=== PATIENT | male | born 1980 | race Caucasian/White ===

== ENCOUNTER 2021-02-11 10:54 | Emergency (ER) | payer OTHER ==
[~2021-02-11] VITALS: Ht 170.2 cm; Wt 97.0 kg
[2021-02-11 11:02] VITALS: BP 136/77
--- NOTE | 2021-02-11 11:20 | PHYS DOC ---
Past History Additional Past Medical Histor: goit, chronic back pain Past Surgical History: Other Additional Past Surgical Histo: left shoulder Alcohol Use: Occasionally General Adult EDM: Chief Complaint: FOOT INJURY PAIN HPI: HPI: 40-year-old male presents with erythematous, swollen, painful left foot at the base of the great toe. The patient states that the skin is extremely sensitive to even light touch. This came up over the last 24 hours. The patient has had an episode similar to this but never had any evaluation or testing. No previous history of gout. He has otherwise been feeling fine. Denies fever or chills. Review of Systems: Review of Systems: Constitutional: Denies fever or chills Eyes: Denies change in visual acuity HENT: Denies nasal congestion or sore throat Respiratory: Denies cough or shortness of breath Cardiovascular: Denies chest pain or edema GI: Denies abdominal pain, nausea, vomiting, bloody stools or diarrhea : Denies dysuria Musculoskeletal: Denies back pain or joint pain Integument: Left face of the great toe erythema and pain Neurologic: Denies headache, focal weakness or sensory changes Endocrine: Denies polyuria or polydipsia Lymphatic: Denies swollen glands Psychiatric: Denies depression or anxiety Allergies: Allergies: Allergies Coded Allergies Type Severity Reaction Last Updated Verified No Known Drug Allergies 02/11/21 No Physical Exam: PE: Constitutional: Well developed, well nourished, no acute distress, non-toxic appearance. [] HENT: Normocephalic, atraumatic, bilateral external ears normal, oropharynx moist, no oral exudates, nose normal. [] Eyes: PERRLA, EOMI, conjunctiva normal, no discharge. [] Neck: Normal range of motion, no tenderness, supple, no stridor. [] Cardiovascular:Heart rate regular rhythm, no murmur [] Lungs & Thorax: Bilateral breath sounds clear to auscultation [] Abdomen: Bowel sounds normal, soft, no tenderness, no masses, no pulsatile masses. [] Skin: Warm, erythematous, very sensitive skin at the base of the left great t oe.[] Back: No tenderness, no CVA tenderness. [] Extremities: No tenderness, no cyanosis, no clubbing, ROM intact, no edema. [] Neurologic: Alert and oriented X 3, normal motor function, normal sensory function, no focal deficits noted. [] Psychologic: Affect normal, judgement normal, mood normal. [] Current Patient Data: Vital Signs: Vital Signs Date Time Temp Pulse Resp B/P (MAP) Pulse Ox O2 Delivery O2 Flow Rate FiO2 02/11/21 11:02 90 18 136/77 (96) 100 Room Air EKG: EKG: [] Radiology/Procedures: Radiology/Procedures: [] Heart Score: C/O Chest Pain: N/A Risk Factors: Risk Factors: DM, Current or recent (<one month) smoker, HTN, HLP, family history of CAD, obesity. Risk Scores: Score 0 - 3: 2.5% MACE over next 6 weeks - Discharge Home Score 4 - 6: 20.3% MACE over next 6 weeks - Admit for Clinical Observation Score 7 - 10: 72.7% MACE over next 6 weeks - Early Invasive Strategies Course & Med Decision Making: Course & Med Decision Making Pertinent Labs and Imaging studies reviewed. (See chart for details) The patient's labs are remarkable for an elevated uric acid and liver enzymes. This appears to be gout. I will treat him with 500 naproxen in the ER and discharge her with a prescription for indomethacin for home. He is stable for discharge at this time. [] Dragon Disclaimer: Dragon Disclaimer: This electronic medical record was generated, in whole or in part, using a voice recognition dictation system. Departure Departure: Impression: Primary Impression: Gout Disposition: HOME / SELF CARE / HOMELESS Condition: STABLE Referrals: LUIZ DEWITT DO, [facility] (PCP) Patient Instructions: Gout, [id number] Scripts Indomethacin (INDOMETHACIN) 50 Mg Capsule 1 CAP PO TID for gout for 10 Days, #30 CAP 0 Refills with food Prov: EPIFANIO BARONE DO 02/11/21 EPIFANIO BARONE DO Feb 11, 2021 11:19
[2021-02-11 12:44] LABS: BASO % 0 % (0-3); EOS # 0.1 x10^3/uL (0.0-0.7); EOS % 1 % (0-3); HEMATOCRIT 44.7 % (39.0-53.0); HEMOGLOBIN 15.7 g/dL (13.0-17.5); LYMPH # 2.4 x10^3/uL (1.0-4.8); LYMPH % 25 % (24-48); MEAN CORPUSCULAR HEMOGLOBIN 31 pg (25-35); MEAN CORPUSCULAR HGB CONC 35 g/dL (31-37); MEAN CORPUSCULAR VOLUME 87 fL (79-100); MONO # 0.8 x10^3/uL (0.0-1.1); MONO % 8 % (0-9); NEUT # 6.4 x10^3uL (1.8-7.7); NEUT % 66 % (31-73); PLATELET COUNT 212 x10^3/uL (140-400); RED BLOOD COUNT 5.16 x10^6/uL (4.30-5.70); RED CELL DISTRIBUTION WIDTH 13.4 % (11.5-14.5); WHITE BLOOD COUNT 9.8 x10^3/uL (4.0-11.0)
[2021-02-11 12:48] LABS: CALCIUM 9.5 mg/dL (8.5-10.1); CREATININE 0.9 mg/dL (0.7-1.3); GFR 92.5; POTASSIUM 3.8 mmol/L (3.5-5.1)
[2021-02-11 12:55] LABS: ALBUMIN 4.3 g/dL (3.4-5.0); ALBUMIN/GLOBULIN RATIO 1.2 (1.0-1.7); TOTAL BILIRUBIN 0.7 mg/dL (0.2-1.0); URIC ACID 8.5 mg/dL (3.5-7.2)
[2021-02-11] MEDS ORDERED: INDO50CA15 PO (13:02)
[2021-02-11] MEDS ORDERED: NAPROXEN 500 MG TABLET PO ONE (13:15)
== END 2021-02-11 13:23 | disposition home or self-care (01) ==
LOC: ER 10:54
DX: M10.9 Gout, unspecified (principal); M79.672 Pain in left foot; G89.29 Other chronic pain
CPT/HCPCS: 36415; 80053; 84550; 85025; 99283

== ENCOUNTER → 2021-03-20 | Outpatient (CLI) | payer OTHER ==
[~2021-03-20] MED LIST: INDO50CA15 PO
--- NOTE | 2021-03-20 14:29 | RAD ---
CT MAXILLOFACIAL WITHOUT CONTRAST History: Chronic parasinusitis. Acute allergic rhinitis. Comparison: None. Technique: Noncontrast CT of the face. Findings: There is a small left and tiny right inferior maxillary sinus mucous retention cysts or polyps. Other groves the paranasal sinuses and mastoid air cells are clear and well aerated. The frontal nasal ducts, ostiomeatal complexes and sphenoethmoidal recesses are patent. There is no nasal cavity and nasophar ynx or oropharyngeal mass or polyposis. The fossa of Rosenmuller are patent. No facial fracture. No c hanges of the facial bones suggestive of chronic sinusitis. No significant dental disease identified. Orbits are unremarkable. Parotid and visualized portions of the submandibular glands are normal. Impression: 1. Small left and tiny right inferior maxillary sinus mucous retention cysts or polyps. 2. Otherwise no significant acute or chronic paranasal sinus disease. ------ Exposure: One or more of the following individualized dose reduction techniques were utilized for thi s examination: 1. Automated exposure control 2. Adjustment of the mA and/or kV according to patient size 3. Use of iterative reconstruction technique. Electronically signed by: Sunny Estes MD (03/20/2021 2:27 PM) [facility]
== END ==
LOC: CT 13:13
PROVIDERS: ATTEND Otolaryngology
DX: J34.1 Cyst and mucocele of nose and nasal sinus (principal); J32.4 Chronic pansinusitis; J30.9 Allergic rhinitis, unspecified
CPT/HCPCS: 70486

== ENCOUNTER 2021-08-22 16:35 | Emergency (ER) | payer OTHER ==
[~2021-08-22] VITALS: Ht 170.2 cm; Wt 97.0 kg
--- NOTE | 2021-08-22 17:39 | PHYS DOC ---
Past History Additional Past Medical Histor: goit, chronic back pain Past Surgical History: Other Additional Past Surgical Histo: left shoulder Alcohol Use: Occasionally General Adult EDM: Chief Complaint: CHEST PAIN HPI: HPI: Patient is a 40-year-old male who presents to the emergency department for chest pain. Patient reports that the chest pain started around 11:00 this afternoon. He states that sometimes it midsternal and sometimes left-sided. He rates it 7 out of 10. He also reports nausea, fatigue, cough and shortness of breath. Patient does have shingles to his left side of his chest and he is on an antiviral. Patient denies any vomiting and fatigue. Review of Systems: Review of Systems: Constitutional: see HPI Respiratory: see HPI Cardiovascular: see HPI GI: see HPI Musculoskeletal: see HPI Integument: see HPI Allergies: Allergies: Allergies Coded Allergies Type Severity Reaction Last Updated Verified No Known Drug Allergies 02/11/21 No Physical Exam: PE: Constitutional: Well developed, well nourished, no acute distress, non-toxic appearance. [] HENT: Normocephalic, atraumatic, bilateral external ears normal, oropharynx moist, no oral exudates, nose normal. [] Eyes: PERRL, EOMI, conjunctiva normal, no discharge. [] Neck: Normal range of motion, no tenderness, supple, no stridor. [] Cardiovascular:Heart rate regular rhythm, no murmur [] Lungs & Thorax: Bilateral breath sounds clear to auscultation, shingles noted to left chest [] Abdomen: Bowel sounds normal, soft, no tenderness, no masses, no pulsatile masses. [] Skin: Warm, dry, no erythema, no rash. [] Back: No tenderness, normal range of motion Extremities: No tenderness, no cyanosis, no clubbing, ROM intact, no edema. [] Neurologic: Alert and oriented X 3, normal motor function, normal sensory function, no focal deficits noted. [] Psychologic: Affect normal, judgement normal, mood normal. [] Current Patient Data: Labs: Laboratory Tests Test 08/22/21 17:10 White Blood Count 9.3 x10^3/uL Red Blood Count 4.79 x10^6/uL Hemoglobin 14.9 g/dL Hematocrit 41.6 % Mean Corpuscular Volume 87 fL Mean Corpuscular Hemoglobin 31 pg Mean Corpuscular Hemoglobin Concent 36 g/dL Red Cell Distribution Width 13.7 % Platelet Count 213 x10^3/uL Neutrophils (%) (Auto) 49 % Lymphocytes (%) (Auto) 39 % Monocytes (%) (Auto) 9 % Eosinophils (%) (Auto) 2 % Basophils (%) (Auto) 0 % Neutrophils # (Auto) 4.5 x10^3uL Lymphocytes # (Auto) 3.7 x10^3/uL Monocytes # (Auto) 0.9 x10^3/uL Eosinophils # (Auto) 0.2 x10^3/uL Basophils # (Auto) 0.0 x10^3/uL Sodium Level 138 mmol/L Potassium Level 3.5 mmol/L Chloride Level 101 mmol/L Carbon Dioxide Level 27 mmol/L Anion Gap 10 Blood Urea Nitrogen 13 mg/dL Creatinine 0.9 mg/dL Estimated GFR (Cockcroft-Gault) 92.5 BUN/Creatinine Ratio 14 Glucose Level 86 mg/dL Calcium Level 9.1 mg/dL Total Bilirubin 0.7 mg/dL Aspartate Amino Transf (AST/SGOT) 53 U/L Alanine Aminotransferase (ALT/SGPT) 118 U/L Alkaline Phosphatase 83 U/L Troponin I High Sensitivity 6 ng/L Total Protein 7.3 g/dL Albumin 3.9 g/dL Albumin/Globulin Ratio 1.1 Current Medications Medications (Trade) Dose Ordered Sig/Ijeoma Route PRN Reason Start Time Stop Time Status Last Admin Dose Admin Sodium Chloride 1,000 ml @ 1,000 mls/hr 1X ONCE IV 08/22/21 17:45 08/22/21 18:44 08/22/21 18:06 Morphine Sulfate (Morphine 2mg Syringe) 2 mg 1X ONCE IV 08/22/21 17:45 08/22/21 17:46 DC 08/22/21 18:06 Vital Signs: Vital Signs Date Time Temp Pulse Resp B/P (MAP) Pulse Ox O2 Delivery O2 Flow Rate FiO2 08/22/21 17:06 98.2 70 18 118/52 (74) 98 Room Air EKG: EKG: [] EKG performed by ER staff at 1712 shows sinus rhythm with a rate of 75, no STEMI read by Dr. Mccabe at 1715. Radiology/Procedures: Radiology/Procedures: []PROCEDURE: PORTABLE CHEST 1V XR CHEST 1V Clinical History: Reason: soa, chest pain / Spl. Instructions: / History: Technique: AP view of the chest was obtained at 08/22/2021 5:40 PM. Comparison: None. Findings: The cardiomediastinal silhouette is normal. The pulmonary vasculature is normal. The lungs and pleural margins are clear. Impression: No evidence of an acute cardiopulmonary process. Electronically signed by: Kole Bejarano III, MD (08/22/2021 6:11 PM) [facility] DICTATED AND SIGNED BY: KOLE BEJARANO III, MD DATE: 08/22/211810 CC: REINA SCHOFIELD APRN; LUIZ DEWITT DO, M[facility] ~ Heart Score: C/O Chest Pain: Yes HEART Score for Chest Pain: HEART Score for Chest Pain Response (Comments) Value History Slighlty/Non-Suspicious 0 ECG Normal 0 Age < 45 0 Risk Factors 1 or 2 Risk Factors 1 Troponin < Normal Limit 0 Total 1 Risk Factors: Risk Factors: DM, Current or recent (<one month) smoker, HTN, HLP, family history of CAD, obesity. Risk Scores: Score 0 - 3: 2.5% MACE over next 6 weeks - Discharge Home Score 4 - 6: 20.3% MACE over next 6 weeks - Admit for Clinical Observation Score 7 - 10: 72.7% MACE over next 6 weeks - Early Invasive Strategies Course & Med Decision Making: Course & Med Decision Making Pertinent Labs and Imaging studies reviewed. (See chart for details) [] Patient presents to the emergency department for chest pain. Chest pain moves from midsternal to left chest. Patient does have shingles to his left chest and is currently taking antivirals. Work-up in the ER consisted of blood work including troponin, influenza and COVID testing, EKG and chest x-ray. Patient treated with IV fluids and pain medication. Patient's lab work is unremarkable, negative troponin. Patient will have serial troponin. Repeat was negative. Chest x-ray shows no acute findings. It is likely that patient's chest pain is related to his shingles. Patient be discharged home with pain medication and lidocaine patch. I discussed with patient all findings and diagnostic testing as well as the need to follow-up with PCP for further evaluation and treatment or return to the ER if any new or worsening symptoms. Strict return precautions were also discussed at length. Patient voiced understanding and agreement with the plan. Patient is hemodynamically stable at the time of disposition. Dragon Disclaimer: Dragon Disclaimer: This electronic medical record was generated, in whole or in part, using a voice recognition dictation system. Departure Departure: Impression: Primary Impression: Atypical chest pain Additional Impression: Shingles Qualified Codes: B02.9 - Zoster without complications Disposition: HOME / SELF CARE / HOMELESS Condition: GOOD Referrals: LUIZ DEWITT DO, [facility] (PCP) Patient Instructions: Chest Contusion, [id number], Shingles, [id number] Additional Instructions: You are seen in the emergency department today for chest pain. As we discussed, does not appear that you are experiencing acute coronary syndrome at this time. It is possible that your chest pain is due to your shingles. You are being discharged home with pain medication and lidocaine patch that you can take as needed. The pain medication you are being discharged with is hydrocodone and Tylenol combination tablet. Continue taking your antiviral as directed. This medication may cause sedation so do not take when you need to be alert, driving a vehicle or with alcohol. Follow-up with your primary care provider on Wednesday regarding your ER visit. Return to the emergency department if you develop chest pain, shortness of breath, high fevers refractory to treatment, tractable nausea or vomiting. Scripts Lidocaine (Lidocaine PATCH ) 1 Each Adh..patch 1 EACH TP DAILY for FOR LOCAL PAIN for 3 Days, #3 PATCH 0 Refills REMOVE AFTER 12 HOURS Prov: REINA SCHOFIELD FINANCIAL AID ADVISOR 08/22/21 Hydrocodone Bit/Acetaminophen (HYDROCODONE-APAP 5-325 ) 1 Each Tablet 1 TAB PO PRN Q6HRS PRN for PAIN for 2 Days, #8 TAB 0 Refills Prov: REINA SCHOFIELD FINANCIAL AID ADVISOR 08/22/21 REINA SCHOFIELD APRN August 22, 2021 17:39
[2021-08-22] MEDS ORDERED: IV NORMAL SALINE 1,000ML 1,000 ML IV ONE (17:45)
[2021-08-22] MEDS ORDERED: MORPHINE SULFATE 2 MG/ML DISP.SYRIN. IV ONE (17:45)
[2021-08-22 18:02] LABS: BASO % 0 % (0-3); EOS # 0.2 x10^3/uL (0.0-0.7); EOS % 2 % (0-3); HEMATOCRIT 41.6 % (39.0-53.0); HEMOGLOBIN 14.9 g/dL (13.0-17.5); LYMPH # 3.7 x10^3/uL (1.0-4.8); LYMPH % 39 % (24-48); MEAN CORPUSCULAR HEMOGLOBIN 31 pg (25-35); MEAN CORPUSCULAR HGB CONC 36 g/dL (31-37); MEAN CORPUSCULAR VOLUME 87 fL (79-100); MONO # 0.9 x10^3/uL (0.0-1.1); MONO % 9 % (0-9); NEUT # 4.5 x10^3uL (1.8-7.7); NEUT % 49 % (31-73); PLATELET COUNT 213 x10^3/uL (140-400); RED BLOOD COUNT 4.79 x10^6/uL (4.30-5.70); RED CELL DISTRIBUTION WIDTH 13.7 % (11.5-14.5); WHITE BLOOD COUNT 9.3 x10^3/uL (4.0-11.0)
[2021-08-22 18:12] LABS: CALCIUM 9.1 mg/dL (8.5-10.1); CREATININE 0.9 mg/dL (0.7-1.3); GFR 92.5; POTASSIUM 3.5 mmol/L (3.5-5.1)
--- NOTE | 2021-08-22 18:14 | RAD ---
XR CHEST 1V Clinical History: Reason: soa, chest pain / Spl. Instructions: / History: Technique: AP view of the chest was obtained at 08/22/2021 5:40 PM. Comparison: None. Findings: The cardiomediastinal silhouette is normal. The pulmonary vasculature is normal. The lungs and pleura l margins are clear. Impression: No evidence of an acute cardiopulmonary process. Electronically signed by: Vladimir Phillips III, MD (08/22/2021 6:11 PM) [facility] [place]
[2021-08-22 18:15] LABS: ALBUMIN 3.9 g/dL (3.4-5.0); ALBUMIN/GLOBULIN RATIO 1.1 (1.0-1.7); TOTAL BILIRUBIN 0.7 mg/dL (0.2-1.0); TOTAL PROTEIN 7.3 g/dL (6.4-8.2)
[2021-08-22 19:39] LABS: INFLUENZA A PATIENT NEGATIVE (NEGATIVE); INFLUENZA B PATIENT NEGATIVE (NEGATIVE)
[2021-08-22] MEDS ORDERED: HYDR-2155 PO (20:09)
[2021-08-22] MEDS ORDERED: LIDO700A21 TP (20:09)
[2021-08-22 20:10] VITALS: BP 129/73
== END 2021-08-22 20:20 | disposition home or self-care (01) ==
LOC: ER 16:35
DX: R07.2 Precordial pain (principal); B02.9 Zoster without complications; G89.29 Other chronic pain; Z20.822 Contact with and (suspected) exposure to COVID-19
CPT/HCPCS: 36415; 71045; 80053; 84484; 85025; 87428; 93005; 96361; 96374; 99285; J2270; J7030